=== PATIENT | male | born 1950 | race Asian ===

== ENCOUNTER 2021-08-13 19:24 | Emergency (ER) | payer BC ==
[~2021-08-13] VITALS: Ht 182.9 cm; Wt 99.8 kg
[2021-08-13 20:00] LABS: PLATELET COUNT 241 K/uL (142-355)
[2021-08-13 20:09] LABS: POTASSIUM 3.6 mmol/L (3.6-5.2)
[2021-08-13 20:22] LABS: PARTIAL THROMBOPLASTIN TIME 24.5 SECONDS (24.5-33.6)
[2021-08-13 21:30] VITALS: BP 168/98
== END 2021-08-13 21:30 | disposition short-term general hospital (02) ==
LOC: ED 19:24
PROVIDERS: Emergency Medicine
DX: I63.9 Cerebral infarction, unspecified (principal); G81.91 Hemiplegia, unspecified affecting right dominant side; I10 Essential (primary) hypertension; Z11.52 Encounter for screening for COVID-19
CPT/HCPCS: 36415; 80053; 82948; 83880; 84484; 85027; 85610; 85730; 87635; 92977; 93005; 96365; 96375; 99285; J2997; J3490; U0003

== ENCOUNTER 2022-04-21 09:45 | Outpatient (CLI) | payer BC, OTHER | END 2022-04-21 20:51 | disposition home or self-care (01) | LOC: US 09:45 | PROVIDERS: ATTEND Internal Medicine | DX: R42 Dizziness and giddiness (principal) ==

== ENCOUNTER 2022-09-19 11:32 | Outpatient (CLI) | payer OTHER | END 2022-09-19 19:20 | disposition home or self-care (01) | LOC: CT 11:32 | PROVIDERS: ATTEND Internal Medicine | DX: R05.9 Cough, unspecified (principal); R06.02 Shortness of breath; Z87.891 Personal history of nicotine dependence; Z09 Encounter for follow-up examination after completed treatment for conditions other than malignant neoplasm ==